=== PATIENT | female | born 1995 | race Native Hawaiian/Other Pacific Islander ===

== ENCOUNTER 2017-07-05 10:55 | Emergency (ER) | payer OTHER ==
[2017-07-05 11:00] VITALS: BP 127/81; PULSE 114; RESP 18; TEMP 98.5; O2SAT 100
--- NOTE | 2017-07-05 11:23 | C.PDOC ---
History Of Present Illness 21 year old female presents to the ED with complaints of new onset of right eye redness for two days with associated watery tears. She does use contact lenses and changes them approximately every month. Patient denies pain, foreign body sensation, vision changes, or other associated symptoms. NEW ONSET R EYE REDNESS X 2 DAYS. +WATERY TEARS. NO PAIN, FB SENSATION. + CONTACT LENS USE, USUALLY CHANGES EVERY MONTH. NO VISION CHANGE, OTHER ASSOC SX EXAM NAD HEENT +R EYE CONJUNCTIVITIS W WATERY DC. NO PERIORB SWELL, REDNESS. NO GROSS VISUAL DEF Time Seen by Provider: 07/05/17 11:20 Chief Complaint (Nursing): Eye Problem History Per: Patient History/Exam Limitations: no limitations Onset/Duration Of Symptoms: Days (2 days ) Current Symptoms Are (Timing): Still Present Injury To Eye?: No Wears Contact Lens?: Yes Associated Symptoms: Discharge From Eye (watery tears ). denies: Decreased Vision, FB Sensation Recent travel outside of the [place]: No Past Medical History Reviewed: Historical Data, Nursing Documentation, Vital Signs Vital Signs: Last Vital Signs Temp 98.5 F 07/05/17 10:59 Pulse 114 H 07/05/17 10:59 Resp 18 07/05/17 10:59 BP 127/81 07/05/17 10:59 Pulse Ox 100 07/05/17 13:19 Family History: States: Unknown Family Hx - Social History Hx Alcohol Use: No Hx Substance Use: No Review Of Systems Constitutional: Negative for: Fever, Chills Eyes: Positive for: Redness. Negative for: Vision Change Cardiovascular: Negative for: Chest Pain, Palpitations Respiratory: Negative for: Cough, Shortness of Breath Physical Exam - Physical Exam Appears: Non-toxic, No Acute Distress Skin: Warm, Dry Head: Atraumatic, Normacephalic Eye(s): bilateral: PERRL, EOMI, right: Other (Conjunctivitis with watery discharge. No periorbital swelling or redness. No gross visual deficit.), left: Normal Inspection Ear(s): Bilateral: Normal Nose: Normal, No Discharge Oral Mucosa: Moist Throat: Normal, No Erythema, No Exudate Neurological/Psych: Oriented x3 ED Course And Treatment O2 Sat by Pulse Oximetry: 100 (room air ) Disposition Counseled Patient/Family Regarding: Diagnosis, Need For Followup, Rx Given - Disposition Referrals: Giovanni Vega MD [Staff Provider] - [facility] [Outside] [facility] [Outside] Disposition: HOME/ ROUTINE Disposition Time: 11:23 Condition: GOOD Prescriptions: Ciprofloxacin 0.3% [Ciloxan 0.3% Ophth SOLN] 2 drop OD Q2 #1 bottle Instructions: Conjunctivitis (ED) Forms: [facility] (Hebrew) - Clinical Impression Clinical Impression: Conjunctivitis - Scribe Statement The provider has reviewed the documentation as recorded by the Scribe Sierra Zarate All medical record entries made by the Scribe were at my direction and personally dictated by me. I have reviewed the chart and agree that the record accurately reflects my personal performance of the history, physical exam, medical decision making, and the department course for this patient. I have also personally directed, reviewed, and agree with the discharge instructions and disposition.
== END 2017-07-05 11:37 | disposition home or self-care (01) ==
LOC: C.ER 10:55
DX: H10.9 Unspecified conjunctivitis (principal)